=== PATIENT | female | born 1950 ===

== ENCOUNTER 2025-09-25 10:00 | Day surgery (SDC) | payer OTHER ==
[2025-09-22 10:02] VITALS: BP 176/78
[~2025-09-25] VITALS: Ht 157.5 cm; Wt 63.0 kg
[~2025-09-25 10:00] MED LIST: ANASTROZOLE1 MG; KEPPRA1000 MG; MYSOLINE50 MG; NEURONTIN300 MG; TRENTRAL; ZESTRIL40 M1; [UNRECOGNIZED DRUG - OTHER]
[2025-09-25] MEDS ORDERED: CEFAZOLIN SODIUM 1,000 MG VIAL ONE (11:01)
[2025-09-25] MEDS ORDERED: CHLORHEXIDINE GLUCONATE 120 ML BOTTLE TOP ONE (12:15)
[2025-09-25] MEDS ORDERED: ENALAPRILAT DIHYDRATE 1.25 MG/ML VIAL IV ONE (14:14)
== END 2025-09-25 14:55 | disposition home or self-care (01) ==
LOC: CIR.AMB 10:00
PROVIDERS: ATTEND Surgery
DX: D05.11 Intraductal carcinoma in situ of right breast (principal)